=== PATIENT | female | born 1935 | race Asian ===

== ENCOUNTER 2016-10-14 10:02 | Emergency (ER) | payer OTHER ==
[~2016-10-14] VITALS: Ht 157.5 cm; Wt 51.7 kg
[2016-10-14 11:51] LABS: BASOPHIL % 0.7 % (0-2); PLATELET COUNT 168 x10^3mcL (130-400)
[2016-10-14 12:02] LABS: RED CELL DISTRIBUTION WIDTH 14.7 % (11.5-14.5)
[2016-10-14 12:28] LABS: CALCIUM 9.1 mg/dL (8.5-10.1); CARBON DIOXIDE 21.8 mmol/L (21-32); CHLORIDE SERUM 109 mmol/L (98-107); GLUCOSE SERUM 107 mg/dL (74-106); POTASSIUM SERUM 3.9 mmol/L (3.5-5.1); SODIUM SERUM 143 mmol/L (136-145)
[2016-10-14 12:31] LABS: ALBUMIN 3.9 g/dL (3.4-5.0); ALKALINE PHOSPHATASE 89 U/L (46-116); ALT/SGPT 21 U/L (14-59); AMYLASE 103 U/L (25-115); AST/SGOT 21 U/L (15-37); LIPASE 348 IU/L (73-393); TOTAL PROTEIN, SERUM 8.1 g/dL (6.4-8.2)
[2016-10-14 13:52] VITALS: BP 127/59
== END 2016-10-14 13:52 | disposition home or self-care (01) ==
LOC: ED 10:02
PROVIDERS: Emergency Medicine
DX: N39.0 Urinary tract infection, site not specified (principal); Z88.0 Allergy status to penicillin; I10 Essential (primary) hypertension
CPT/HCPCS: 36415; 83880; J1885

== ENCOUNTER 2016-11-05 17:16 | Inpatient (IN) | payer OTHER ==
[~2016-11-05] VITALS: Ht 160 cm; Wt 52.2 kg
[2016-11-05 19:08] LABS: BASOPHIL % 0.4 % (0-2); PLATELET COUNT 150 x10^3mcL (130-400)
[2016-11-05 19:12] LABS: RED CELL DISTRIBUTION WIDTH 14.6 % (11.5-14.5)
[2016-11-05 19:15] LABS: CALCIUM 8.7 mg/dL (8.5-10.1); CARBON DIOXIDE 23.7 mmol/L (21-32); CHLORIDE SERUM 106 mmol/L (98-107); CREATININE SERUM 1.2 mg/dL (0.6-1.0); GLUCOSE SERUM 121 mg/dL (74-106); LIPASE 513 IU/L (73-393); POTASSIUM SERUM 3.9 mmol/L (3.5-5.1); SODIUM SERUM 140 mmol/L (136-145)
[2016-11-05 20:59] VITALS: BP 120/84
[2016-11-05 21:11] LABS: T3 TOTAL 0.79 ng/mL
[2016-11-05 21:21] LABS: PHOSPHOROUS 4.1 mg/dL (2.5-4.9)
[2016-11-05 21:29] LABS: FREE T4 1.31 ng/dL (0.76-1.46); FREE THYROXINE INDEX 3.5 ug/dL (1.4-4.5); T4(THYROXINE) 9.6 ug/dL (4.7-13.3)
[2016-11-05 22:42] VITALS: BP 120/84
[2016-11-06 03:35] LABS: BASOPHIL % 1.8 % (0-2); PLATELET COUNT 141 x10^3mcL (130-400); RED CELL DISTRIBUTION WIDTH 13.3 % (11.5-14.5)
[2016-11-06 03:46] LABS: ALKALINE PHOSPHATASE 249 U/L (46-116); ALT/SGPT 466 U/L (14-59); AST/SGOT 731 U/L (15-37); BILIRUBIN TOTAL 1.24 mg/dL (0.20-1.00); CALCIUM 8.3 mg/dL (8.5-10.1); CARBON DIOXIDE 26.8 mmol/L (21-32); CHLORIDE SERUM 105 mmol/L (98-107); GLUCOSE SERUM 119 mg/dL (74-106); POTASSIUM SERUM 3.7 mmol/L (3.5-5.1); SODIUM SERUM 138 mmol/L (136-145); TOTAL PROTEIN, SERUM 6.9 g/dL (6.4-8.2)
[2016-11-06 03:47] LABS: ALBUMIN 3.3 g/dL (3.4-5.0)
[2016-11-06 06:42] VITALS: BP 120/82
[2016-11-06 09:06] VITALS: BP 121/83
[2016-11-06 13:41] VITALS: BP 144/86
[2016-11-06 16:47] VITALS: BP 136/72
[2016-11-06 19:39] VITALS: BP 105/51
[2016-11-07 05:41] VITALS: BP 147/82
[2016-11-07 06:05] LABS: BASOPHIL % 0.5 % (0-2); PLATELET COUNT 141 x10^3mcL (130-400)
[2016-11-07 06:21] LABS: RED CELL DISTRIBUTION WIDTH 14.6 % (11.5-14.5)
[2016-11-07 06:24] LABS: CALCIUM 8.1 mg/dL (8.5-10.1); CARBON DIOXIDE 23.7 mmol/L (21-32); CHLORIDE SERUM 107 mmol/L (98-107); CREATININE SERUM 0.7 mg/dL (0.6-1.0); GLUCOSE SERUM 95 mg/dL (74-106); PHOSPHOROUS 2.9 mg/dL (2.5-4.9); POTASSIUM SERUM 3.5 mmol/L (3.5-5.1); SODIUM SERUM 140 mmol/L (136-145)
[2016-11-07 08:41] LABS: AMPHETAMINE QUAL UR NONE DETECTED (NEG <=1000)
[2016-11-07 09:36] VITALS: BP 137/78
[2016-11-07 13:55] VITALS: BP 117/68
[2016-11-07 16:20] VITALS: BP 147/87
[2016-11-07 21:45] VITALS: BP 133/76
[2016-11-07 22:12] LABS: microscopic required? YES; urine erythrocyte 2+ (NEGATIVE)
[2016-11-08 05:39] VITALS: BP 139/81
[2016-11-08 06:17] LABS: BASOPHIL % 0.4 % (0-2); PLATELET COUNT 139 x10^3mcL (130-400); RED CELL DISTRIBUTION WIDTH 14.4 % (11.5-14.5)
[2016-11-08 06:21] LABS: CALCIUM 8.4 mg/dL (8.5-10.1); CARBON DIOXIDE 22.3 mmol/L (21-32); CHLORIDE SERUM 106 mmol/L (98-107); CREATININE SERUM 0.9 mg/dL (0.6-1.0); GLUCOSE SERUM 102 mg/dL (74-106); MAGNESIUM 1.9 mg/dL (1.8-2.4); POTASSIUM SERUM 3.5 mmol/L (3.5-5.1); SODIUM SERUM 139 mmol/L (136-145)
[2016-11-08 10:35] VITALS: BP 127/78
[2016-11-08 14:06] VITALS: BP 120/81
[2016-11-08 18:50] VITALS: BP 142/76
[2016-11-08 21:03] VITALS: BP 126/81
[2016-11-09 05:36] VITALS: BP 130/78
[2016-11-09 06:15] LABS: BASOPHIL % 0.2 % (0-2); PLATELET COUNT 148 x10^3mcL (130-400); RED CELL DISTRIBUTION WIDTH 14.4 % (11.5-14.5)
[2016-11-09 06:52] LABS: CALCIUM 8.5 mg/dL (8.5-10.1); CARBON DIOXIDE 20.9 mmol/L (21-32); CHLORIDE SERUM 104 mmol/L (98-107); GLUCOSE SERUM 119 mg/dL (74-106); MAGNESIUM 1.8 mg/dL (1.8-2.4); PHOSPHOROUS 3.9 mg/dL (2.5-4.9); POTASSIUM SERUM 4.3 mmol/L (3.5-5.1); SODIUM SERUM 135 mmol/L (136-145)
[2016-11-09 09:48] VITALS: BP 131/92
[2016-11-09 11:21] VITALS: Ht 160 cm; Wt 52.2 kg
[2016-11-09 13:30] VITALS: BP 139/76
[2016-11-09 17:50] VITALS: BP 97/52
[2016-11-09 21:04] VITALS: BP 149/98
[2016-11-10 00:10] VITALS: BP 130/76
[2016-11-10 05:40] VITALS: BP 155/94
[2016-11-10 06:14] VITALS: BP 150/82
[2016-11-10 06:32] LABS: BASOPHIL % 0.2 % (0-2); PLATELET COUNT 157 x10^3mcL (130-400)
[2016-11-10 06:39] LABS: RED CELL DISTRIBUTION WIDTH 14.6 % (11.5-14.5)
[2016-11-10 06:49] LABS: CALCIUM 9.3 mg/dL (8.5-10.1); CARBON DIOXIDE 23.1 mmol/L (21-32); CHLORIDE SERUM 105 mmol/L (98-107); CREATININE SERUM 0.9 mg/dL (0.6-1.0); GLUCOSE SERUM 110 mg/dL (74-106); PHOSPHOROUS 4.1 mg/dL (2.5-4.9); POTASSIUM SERUM 3.8 mmol/L (3.5-5.1); SODIUM SERUM 138 mmol/L (136-145)
[2016-11-10 10:03] VITALS: BP 156/81
[2016-11-10] MEDS ORDERED: APAP/HYDROCODON1 T13 PO ×2 (12:35→12:40)
[2016-11-10] MEDS ORDERED: COLACE100 MG PO (12:41)
[2016-11-10] MEDS ORDERED: LISINOPRIL10 MG PO (12:42)
[2016-11-10] MEDS ORDERED: METFORMIN500 M1 GT (12:43)
[2016-11-10 13:28] VITALS: BP 146/72
[2016-11-10] MEDS ORDERED: ECO81 PO (14:42)
[2016-11-10] MEDS ORDERED: LIPI10 PO (14:43)
[2016-11-10 15:19] VITALS: BP 146/72
[2016-11-10] MEDS ORDERED: TEN25 PO (17:20)
== END 2016-11-10 18:30 | disposition home or self-care (01) | DRG 263 ==
LOC: ED 17:16 → DU 19:31
PROVIDERS: Emergency Medicine; Family Medicine; Surgery; ADMIT Family Medicine
PROC: 0FT44ZZ Resection of Gallbladder, Percutaneous Endoscopic Approach (ICD-10-PCS; principal; 2016-11-08 07:30)
DX: K80.10 Calculus of gallbladder with chronic cholecystitis without obstruction (principal); N17.0 Acute kidney failure with tubular necrosis; I48.2 Chronic atrial fibrillation; E11.65 Type 2 diabetes mellitus with hyperglycemia; E11.51 Type 2 diabetes mellitus with diabetic peripheral angiopathy without gangrene; N39.0 Urinary tract infection, site not specified; D64.9 Anemia, unspecified; I10 Essential (primary) hypertension; M94.0 Chondrocostal junction syndrome [Tietze]; E78.5 Hyperlipidemia, unspecified; Z68.20 Body mass index [BMI] 20.0-20.9, adult
CPT/HCPCS: 82962; 83880; 84439; 97110-GP; 97116-GP; 97530-GP; J0330; J1170; J1885; J1956; J2405; J2704; J3010; J3490; J7030; J7050; Q0092

== ENCOUNTER 2018-12-02 15:43 | Emergency (ER) | payer OTHER ==
[~2018-12-02] VITALS: Ht 154.9 cm; Wt 56.7 kg
[~2018-12-02 15:43] MED LIST: APAP/HYDROCODON1 T13 PO; CLINDAMYCIN HC300 MG PO; COLACE100 MG PO; ECO81 PO; ELIQUIS2.5 MG PO; LAC PO; LEVAQUIN750 MG PO; LIPI10 PO; LISINOPRIL10 MG PO; LOSARTAN POTASS25 M1 PO; METFORMIN500 M1 GT; NORCO1 TA1 PO; TEN25 PO; TOPROL XL50 MG PO
[2018-12-02 15:46] VITALS: Ht 154.9 cm; Wt 56.7 kg
[2018-12-02 19:05] VITALS: BP 135/74
== END 2018-12-02 19:14 | disposition home or self-care (01) ==
LOC: ED 15:43
DX: M54.5 Low back pain (principal); M25.552 Pain in left hip; I48.91 Unspecified atrial fibrillation; Z88.0 Allergy status to penicillin; W01.0XXA Fall on same level from slipping, tripping and stumbling without subsequent striking against object, initial encounter; Y93.89 Activity, other specified; Y92.89 Other specified places as the place of occurrence of the external cause; Y99.8 Other external cause status
CPT/HCPCS: J1885; Q0092